=== PATIENT | female | born 1950 | race Caucasian/White ===

== ENCOUNTER 2017-09-27 20:57 | Emergency (ER) | payer BC ==
[~2017-09-27] VITALS: Ht 149.9 cm; Wt 43.0 kg
[2017-09-27 22:36] LABS: HEMATOCRIT 36.1 % (36.0-46.0); HEMOGLOBIN 12.3 G/DL (11.9-15.5); MCHC 34.1 G/DL (30.0-36.0); PLATELET COUNT 253 K/uL (156-360); RBC DIS.WIDTH-CV 13.6 % (11.8-14.6); RBC DIS.WIDTH-SD 46.5 % (39-53); RED BLOOD COUNT 3.84 M/uL (3.80-5.20); WHITE BLOOD COUNT 15.4 K/uL (4.1-10.2)
[2017-09-27 22:43] LABS: PTT 22.3 SEC (25-37)
[2017-09-27 22:48] LABS: CHLORIDE 106 mEq/L (99-109); POTASSIUM 3.8 mEq/L (3.7-5.4); SODIUM 142 mEq/L (136-147)
[2017-09-27 22:50] LABS: GLUCOSE 125 mg/dL (70-99)
[2017-09-27 22:54] LABS: CREATININE 0.8 mg/dL (0.6-1.3); GFR ESTIMATE (CALCULATED) > 59 mL/min/
[2017-09-27 22:55] LABS: UREA NITROGEN (BUN) 33 mg/dL (9-23)
[2017-09-28 00:30] VITALS: BP 138/65
== END 2017-09-28 03:58 | disposition short-term general hospital (02) ==
LOC: EME → TRA 20:57 → EDBD 20:57 → TRA 09-28 03:58
PROVIDERS: Emergency Medicine
PROC: 2W3LX1Z Immobilization of Right Lower Extremity using Splint (ICD-10-PCS; principal; 2017-09-27)
DX: S72.491A Other fracture of lower end of right femur, initial encounter for closed fracture (principal); W01.0XXA Fall on same level from slipping, tripping and stumbling without subsequent striking against object, initial encounter; Y93.01 Activity, walking, marching and hiking; Y92.007 Garden or yard of unspecified non-institutional (private) residence as the place of occurrence of the external cause; I10 Essential (primary) hypertension; F32.9 Major depressive disorder, single episode, unspecified; Z87.19 Personal history of other diseases of the digestive system; Z88.5 Allergy status to narcotic agent
CPT/HCPCS: 73502; 73552; 73560; 73590; 80048; 85027; 85610; 85730; 86850; 86900; 86901; 99281; 99285; J1170; J7030; J7050